=== PATIENT | female | born 1995 | race African-American/Black ===

== ENCOUNTER 2022-11-03 22:45 | Emergency (ER) | payer BC, SELFPAY ==
[2022-11-03 22:50] VITALS: BP 146/97; PULSE 61; RESP 14; TEMP 36.7; O2SAT 100
[2022-11-03 23:39] VITALS: BP 138/72; PULSE 59; RESP 16; O2SAT 100
[2022-11-04 00:17] VITALS: BP 147/85; PULSE 80; RESP 18; O2SAT 100
[2022-11-04 00:31] VITALS: BP 142/95; O2SAT 100
[2022-11-04 00:46] VITALS: BP 134/98; PULSE 76; RESP 16; O2SAT 100
[2022-11-04 01:02] LABS: Basophils Percent Auto 0.2 % (0.2-1.2); Hematocrit 42.3 % (37.0-47.0); Hemoglobin 13.9 g/dL (12.0-15.0); Immature Granulocyte Absolute 0.06 K/mm3 (0.00-0.031); Immature Granulocyte Percent A 0.4 % (0-0.5); Immature Platelet Fraction Pct 5.2 % (0.9-11.2); Lymphocytes Absolute Auto 1.74 K/mm3 (0.9-3.2); Lymphocytes Percent Auto 11.8 % (18.3-44.2); Mean Corpuscular HGB Conc 32.9 g/dl (32-36); Mean Corpuscular Hemoglobin 29.2 pg (26-34); Mean Corpuscular Volume 88.9 fl (80-100); Mean Platelet Volume 11.1 fl (7.4-10.4); Monocytes Absolute Auto 0.6 K/mm3 (0.1-0.6); Monocytes Percent Auto 4.2 % (2.6-8.5); Neutrophils Absolute Auto 12.3 K/mm3 (1.3-6.7); Neutrophils Percent Auto 83.4 % (45.5-73.1); Platelet Count Result 127 k/mm3 (150-375); Red Blood Count 4.76 M/mm3 (4.2-5.4); Red Cell Distribution Width 14.1 % (11.5-14.5); White Blood Count 14.8 K/mm3 (4.5-10.0)
[2022-11-04] MEDS: ONDANSETRON INJ 4 MG/2 ML VIAL IV PUSH (01:24)
[2022-11-04] MEDS: FAMOTIDINE 20 MG/2 ML VIAL IV PUSH (01:25)
[2022-11-04] MEDS: SODIUM CHLORIDE 0.9% IV 2,000 ML 999 ML IV CONT (01:25)
[2022-11-04] MEDS: HALOPERIDOL LACTATE 5 MG/ML VIAL IV PUSH (01:25)
[2022-11-04 01:52] LABS: Alanine Aminotransferase 23 U/L (6-35); Albumin Level 4.8 g/dL (3.5-5.1); Alkaline Phosphatase 64 U/L (38-126); Anion Gap 5 mmol/L (8-16); Aspartate Amino Transferase 31 U/L (14-36); Bilirubin,Total 0.5 mg/dL (0.2-1.3); Blood Urea Nitrogen 11 mg/dL (7-17); Calcium 9.3 mg/dL (8.4-10.2); Carbon Dioxide 28 mmol/L (22-30); Chloride 106 mmol/L (98-107); Estimated Glomerular Filt Rate > 60; Glucose 126 mg/dL (65-110); Lipase 34 U/L (23-300); Potassium 4.2 mmol/L (3.4-5.0); Sodium 139 mmol/L (137-145)
[2022-11-04 02:01] LABS: Appearance Urine Cloudy (Clear); Bacteria Urine 4+ /hpf; Bilirubin Urine Negative (Negative); Blood Urine 1+ (Negative); Color Urine Yellow (Yellow); Glucose Urine UA Negative (Negative); Ketones Urine 2+ mg/dL (Negative); Leukocyte Esterase Ur Trace LEU/UL (Negative); Need Manual Microscopic Reviewed; Nitrate Urine Negative (Negative); Protein Urine 1+ mg/dL (Negative); Specific Grav Ur 1.023 (1.001-1.035); Squamous Epithelial Cell Urine Few /hpf (Few); Urobilinogen Urine 0.2 mg/dL (<2.0); pH Urine 6.5 (5.0-9.0)
[2022-11-04 02:03] LABS: Add Urine Microscopic? YES
[2022-11-04 03:05] VITALS: BP 104/74; PULSE 72; RESP 14; O2SAT 100
--- NOTE | 2022-11-04 03:50 | ED.GENADULT ---
HPI - General Adult General Chief complaint: Nausea/Vomiting/Diarrhea Stated complaint: nausea/vomiting Time Seen by Provider: 11/04/22 00:11 History of Present Illness HPI narrative: A 27-year-old marijuana user presenting ED with a chief complaint of nausea vomiting. Patient said she had persistent nausea vomited 6:00 p.m. earlier today. She is unable to keep down liquids. She drives he multiple times. She denies abdominal pain, diarrhea, fevers, chest pain difficulty breathing or urinary symptoms. She did take Zofran with some relief. She has had this X happened to her once in the past. Patient uses a large amount of marijuana per day Related Data Allergies Allergy/AdvReac Type Severity Reaction Status Date / Time No Known Allergies Allergy Verified 11/03/22 23:42 Exam Narrative: APPEARANCE: No apparent distress. patient is retching loudly Head: atraumatic. EYES: EOMI, NOSE: Atraumatic NECK: Trachea midline RESPIRATORY: No increased rate of breathing CARDIOVASCULAR: RRR, ABDOMINAL: abdomen is soft nondistended no guarding or rebound MUSCULOSKELETAl: No obvious deformities NEURO: Alert. Moving 4/4 extremities SKIN:: Warm, dry. Normal color PSYCHIATRIC: Normal affect Course Vital Signs Vital signs: Vital Signs Temperature 98.0 F 11/03/22 22:50 Pulse Rate 61 11/03/22 22:50 Respiratory Rate 14 11/03/22 22:50 Blood Pressure 146/97 H 11/03/22 22:50 Pulse Oximetry 100 11/03/22 22:50 Oxygen Delivery Room Air 11/03/22 22:50 Temperature 98.0 F 11/03/22 22:50 Pulse Rate 72 11/04/22 03:05 Respiratory Rate 14 11/04/22 03:05 Blood Pressure 104/74 11/04/22 03:05 Pulse Oximetry 100 11/04/22 03:05 Oxygen Delivery Room Air 11/03/22 23:39 Medical Decision Making [facility] Narrative Medical decision making narrative: -Presentation: 27-year-old female presenting with vomiting since 6:00 p.m.. Vital signs are stable and her abdominal exam is benign. -DDX includes but is not limited to: Cyclic vomiting, food poisoning, gastritis -Co-morbidities complicating care: daily marijuana use -Social determinants of health: works as a retail selling floor leader lives with her boyfriend Yoshi -External Chart Review: none -Hx from independent Sources: Yoshi at bedside -Discussion of Management/Consultants: none -Independent interpretation of studies: WBC was mildly elevated. Likely stress reaction UA had some white blood cells and trace leuk esterase. patient is asymptomatic. Will await culture results. Dx tests considered but not ordered: -Procedures: -Interventions: 2 L normal saline, 5 mg Haldol, 20 mg Pepcid, 4 mg Zofran -Shared decision making / Disposition: the patient was feeling better and removed her own IV and asked for discharge paperwork and a work note. On re-evaluation her abdominal exam was benign. Vital signs are still stable and she is tolerating p.o.. Patient will be discharged -RX zofran Vital Signs Vital Signs: Vital Signs Temperature 98.0 F 11/03/22 22:50 Pulse Rate 61 11/03/22 22:50 Respiratory Rate 14 11/03/22 22:50 Blood Pressure 146/97 H 11/03/22 22:50 Pulse Oximetry 100 11/03/22 22:50 Oxygen Delivery Room Air 11/03/22 22:50 Temperature 98.0 F 11/03/22 22:50 Pulse Rate 72 11/04/22 03:05 Respiratory Rate 14 11/04/22 03:05 Blood Pressure 104/74 11/04/22 03:05 Pulse Oximetry 100 11/04/22 03:05 Oxygen Delivery Room Air 11/03/22 23:39 Lab Data 11/04/22 00:16 11/04/22 01:37 Labs: Lab Results 11/04/22 11/04/22 11/04/22 Range/Units 00:16 00:58 01:37 WBC 14.8 H (4.5-10.0) K/mm3 RBC 4.76 (4.2-5.4) M/mm3 Hgb 13.9 (12.0-15.0) g/dL Hct 42.3 (37.0-47.0) % MCV 88.9 (80-100) fl MCH 29.2 (26-34) pg MCHC 32.9 (32-36) g/dl RDW 14.1 (11.5-14.5) % Plt Count 127 L (150-375) k/mm3 MPV 11.1 H (7.4-10.4) fl Immature Gran % (
[2022-11-04 04:05] VITALS: BP 126/78; PULSE 90; RESP 16; O2SAT 100
== END 2022-11-04 04:08 | disposition home or self-care (01) ==
PROVIDERS: Emergency Provider Emergency Medicine
DX: R11.2 Nausea with vomiting, unspecified (principal); F12.90 Cannabis use, unspecified, uncomplicated
CPT/HCPCS: 36415; 80053; 81001; 81025; 83690; 85025; 85055; 87077; 87086; 87186; 96361; 96374; 96375; 99284; J1630; J2405; J7030